=== PATIENT | male | born 1935 | race Caucasian/White ===

== ENCOUNTER 2021-05-02 12:15 | Inpatient (IN) | payer MEDICARE, SELFPAY ==
[2021-05-02] VITALS (44 sets, daily range): BP systolic 80–118; BP diastolic 39–59; PULSE 50–69; RESP 10–32; TEMP 36.6; O2SAT 86–95; BMI 27.9
--- NOTE | 2021-05-02 12:20 | ED_ITS ---
HPI - Chest Pain General: Chief Complaint: Chest Pain Stated Complaint: STEMI Time Seen by Provider: 05/02/21 12:20 History of Present Illness: HPI narrative: Mr. Blunt is an 86-year-old gentleman with history of CAD status post PCI approximately 2 years ago presents the emergency department as a STEMI activation. He reports symptom onset of midsternal chest pressure associated with nausea and diarrhea last night. Symptoms are similar to prior stenting. Initially symptoms were intermittent however now become constant and moderate to severe intensity. He does endorse continued pain with mild improvement of nitro. He was seen at [facility] and EKG at that time found STEMI. He was given aspirin, Plavix, and loaded with heparin and, after discussion with cardiology, transfer to this facility via EMS. History is otherwise limited of acuity of condition and time constraints as patient is being prepped for Audioprosthologist. Review of Systems General: Reports: ROS unobtainable due to medical condition Physical Exam Narrative: EXAM NARRATIVE: GENERAL/CONSTITUTIONAL -mildly ill-appearing. No acute distress. Eyes - PERRL, no conjunctival injection ENMT - Atraumatic external nose and ears. Moist mucous membranes NECK - supple. trachea midline CARDIOVASCULAR - regular rate and rhythm. Peripheral pulses 2+ and equal RESPIRATORY -clear to auscultation bilaterally. No retractions or accessory muscle use. ABDOMEN/GI - Nontender, Nondistended. MSK - Extremities without obvious deformity or tenderness to palpation SKIN - Warm, Dry NEURO - alert and appropriately oriented. Moves all extremities equally. PSYCH - Appropriate mood and affect Course ED course: - Patient was seen and evaluated by me at bedside - Patient placed on cardiac monitors, IV access obtained - Initial evaluation notable for no acute distress, nontoxic appearance. - Cardiology and Audioprosthologist team at bedside. - EKG reviewed and consistent with STEMI. - Patient taken to Audioprosthologist emergently without deterioration in the emergency department. Vital Signs: Vital signs: Vital Signs Temperature 98.1 F 05/03/21 07:09 Pulse Rate 78 05/03/21 08:37 Respiratory Rate 17 05/03/21 07:09 Blood Pressure 98/62 05/03/21 07:09 Pulse Oximetry 92 05/03/21 08:37 MDM - Chest Pain Medical Records: Attestation: I reviewed the patient's medical records. Lab Data: Attestation: I reviewed the patient's lab results. EKG Data^: EKG 1: Attestation: I personally reviewed and interpreted this EKG as follows: EKG interpretation date: 05/02/21 EKG interpretation time: 12:18 Ischemic changes: acute STEMI Interpretation: Twelve-lead EKG shows a regular rhythm at a rate of 55. [place] interval 189. QRS duration 109. QTc 429. Borderline [place]. ST elevation in V1 through V3 with questionable involvement in V4 limited interpretation secondary to wandering baseline in V4. Interpretation: Sinus rhythm. STEMI. Discharge Plan Discharge Admit Provider: Cristiane Rich Clinical Impression: ST elevation myocardial infarction (STEMI) Condition: Stable Coding Level of Care Code ED Electrocardiograph Technician for Geeta Gonzalez
--- NOTE | 2021-05-02 12:22 | XACV_ITS ---
Exam Room: [facility] Ht: 175 cm Wt: 77 kg BSA: 1.95 m2 Gender: Male : 1935 Any Known Allergies: No known allergies Exam Priority: Routine Procedure(s): Procedure Description: Diagnostic procedure Procedure Description: PCI procedure Procedure Description: Left Heart Catheterization Procedure Description: Drug Eluting Coronary Stent Procedure Description: PTCA Diagnostic Findings * Left Main has no disease. * Circumflex has no disease. * Proximal Left Anterior Descending to Distal Left Anterior Descending: total occlusion, LUCIANO: 0 flow. * Proximal Right Coronary Artery: severe 85% stenosis, LUCIANO: 3 flow. * First Obtuse Marginal Branch Segment: moderate 50% stenosis, LUCIANO: 3 flow. * Coronary angiography shows right dominance. PCI Indication: NSTE - ACS Interventional Findings * We after somewhat difficulty were able to cross into LAD multiple balloon angioplasty was performed it appeared to me that LAD is chronically occluded and we were not able to open it. We then decided to treat proximal RCA lesion. Patient had dynamic EKG changes and chest pain therefore we proceeded with balloon angioplasty followed by drug-eluting stent placement. It was postdilated with noncompliant balloon. Good angiographic result with LUCIANO-3 flow was achieved.. * Proximal Right Coronary Artery: 85% stenosis treated with a AB MINI TREK 2.00X15 RX BALLOON, SARY Nettles IVAN 2.75X15 YOAN, and SARY SINGH EUPHORA RX 3.74B26UP BALLOON. 0% residual stenosis, LUCIANO: 3 flow. Conclusions 1. 86-year-old male presented with unstable non-ST elevation MS with continuous chest pain going on for the last night and dynamic EKG changes. He was taken to the [facility] from the ER. He was noted to have occluded mid LAD stents which he thinks has been placed few months ago at an outside hospital. He says he is taking his Plavix. Circumflex has luminal irregularity, left main is patent, RCA has ostial to proximal highly calcified eccentric 85% stenosis. Left circumflex is codominant with luminal irregularity obtuse marginal 1 has 50% stenosis. Patient is not a good candidate for CABG.. 2. There is total occlusion coronary artery disease with two vessel disease. 3. Proximal Right Coronary Artery was treated with a Balloon, Drug Eluting Stent, and Balloon. Recommendations * 1-Return to inpatient for close monitoring and routine cath care2-Risk factor modification for secondary prevention3-Statin and aspirin 81 mg life--long, if tolerated4-Patient was pre-loaded with 600 mg of Plavix, continue Plavix 75mg p.o. daily for at least one year. We will assess at the end of one year again to continue if further or not5-Continue optimal medical management6-Follow up with Dr. Rich in four weeks and your primary care in 10 days. Diagnostic RX Recommendation: PCI w/o planned CABG Pressures Phase:Rest AO : 94 / 69 ( 55 ) @ 12:13:00 PM 107 / 65 ( 83 ) @ 12:22:00 PM Clinical Evaluation EBL: 5mL-10mL Procedural Details Current Diagnosis : STEMI. Pre-Procedure Time Out. Identified patient by full name and date of as verbalized by the patient/guarantor. Does the consent match the physician's order: N/A Emergent; Informed Consent not obtained due to time critical life threat. Accurate & Complete Informed Consent: N/A Emergent; Informed Consent not obtained due to time critical life threat. Inpatient/Outpatient History & Physical on Chart: N/A Emergent; Informed Consent not obtained due to time critical life threat. If H&P is completed, is and addenduem needed: N/A Emergent; Informed Consent not obtained due to time critical life threat; If yes, is the addendum complete: N/A Emergent; Informed Consent not obtained due to time critical life threat. Visualize and Verify Site with Patient/Guarantor: N/A. Relevant Radiology Images available: N/A Emergent; Informed Consent not obtained due to time critical life threat. Pre-op teaching completed and patient verbalized understanding. The risks, benefits, and alternatives of sedation and/or procedure were discussed by physician. The patient agrees to continue. Procedure started. Current diagnosis: STEMI. PERRLA. Strong, equal hand internet project manager bilaterally. Lungs clear x 5 lobes. Oxygen started at 2liters/min via nasal canula. bilateral groins was prepped with chloroprep then draped in the usual sterile fashion. right radial was prepped with chloroprep then draped in the usual sterile fashion. Physician notified. Baseline sample Acquired. HR: 65 BPM. Equipment: 6F - Radial. ACIST Manifold Kit Model BT 2000. Cardiac Cath Pack. Heparinized Saline (2 units/mL), 1000 mL bag. Physician arrived. Physician scrubbed in. Immediate Pre-Procedure Time Out. Correct Patient: Yes; Correct Procedure: Yes; Correct Site: Yes; Correct Patient Position: Yes; Correct Supplies: Yes; Dried Flammable Prep: Yes; Blood Products Available: N/A Emergent; Informed Consent not obtained due to time critical life threat;. AP Pads applied to pt. Lidocaine 1% infiltrated to the right radial. Arterial access obtained. Inventory is [employer] [place] XT .014 190cm Str. Guidewire. 6 georgian XB 3.5 guide catheter was inserted over the wire. Multiple views taken of left coronary artery. Runthrough guidewire was advanced through the guide catheter to lesion in the mid LAD. Inflation number : 11 A AB MINI TREK 2.00X15 RX BALLOON was prepped and advanced across the Mid LAD , then inflated to 20 OUSMANE for 0:25 seconds. Inflation number: 1 The AB MINI TREK 2.00X15 RX BALLOON was reinflated across the Mid LAD, to 18 OUSMANE for 0:20 seconds. Inflation number: 2 The AB MINI TREK 2.00X15 RX BALLOON was reinflated across the Mid LAD, to 16 OUSMANE for 0:12 seconds. Inflation number: 3 The AB MINI TREK 2.00X15 RX BALLOON was reinflated across the Mid LAD, to 16 OUSMANE for 0:13 seconds. Inflation number: 4 The AB MINI TREK 2.00X15 RX BALLOON was reinflated across the Mid LAD, to 16 OUSMANE for 0:13 seconds. Inflation number: 5 The AB MINI TREK 2.00X15 RX BALLOON was reinflated across the Mid LAD, to 16 OUSMANE for 0:18 seconds. Results checked. Balloon out. Guide catheter out. Lidocaine 1% infiltrated to the right groin. Arterial access obtained with micropuncture set. needle out. holding manual pressure. Lidocaine 1% infiltrated to the right groin. Arterial access obtained with micropuncture set. needle out. holding manual pressure. Arterial access obtained with micropuncture set. needle out. holding manual pressure. Arterial access obtained with micropuncture set. 6 georgian XB 3.5 guide catheter was inserted over the wire. ACT drawn. Results 176 seconds. Therapeutic limits - pre-heparin administration 90-150 seconds and monitoring heparin during a vascular procedure >250 seconds. Multiple views taken of left coronary artery. Runthrough guidewire was advanced through the guide catheter to lesion in the mid LAD. Inflation number : 6 A MDT NC EUPHORA RX 2.76H26GN BALLOON was prepped and advanced across the Mid LAD , then inflated to 16 OUSMANE for 0:26 seconds. Inflation number: 7 The MDT NC EUPHORA RX 2.93L29GF BALLOON was reinflated across the Mid LAD, to 16 OUSMANE for 0:25 seconds. Inflation number: 8 The MDT NC EUPHORA RX 2.84B60MG BALLOON was reinflated across the Mid LAD, to 18 OUSMANE for 0:22 seconds. Inflation number: 9 The MDT NC EUPHORA RX 2.28E08XS BALLOON was reinflated across the Mid LAD, to 16 OUSMANE for 0:19 seconds. Results checked. Inflation number: 4 The MDT NC EUPHORA RX 2.98M92YX BALLOON was reinflated across the Mid LAD, to 16 OUSMANE for 0:10 seconds. Results checked. Balloon out. Wire out. Guide catheter out. A 5 georgian JR4 catheter in over wire. Multiple views taken of right coronary artery. catheter out. 6 georgian JR 4 SH guide catheter was inserted over the wire. Runthrough guidewire was advanced through the guide catheter to lesion in the prox RCA. Inflation number: 1 The AB MINI TREK 2.00X15 RX BALLOON was reinflated across the Prox RCA, to 10 OUSMANE for 0:15 seconds. Inflation number: 2 The AB MINI TREK 2.00X15 RX BALLOON was reinflated across the Prox RCA, to 14 OUSMANE for 0:17 seconds. Inflation number: 3 The AB MINI TREK 2.00X15 RX BALLOON was reinflated across the Prox RCA, to 14 OUSMANE for 0:22 seconds. Results checked. Balloon out. stent inserted and removed intact. Inflation Number : 4 A MDT R IVAN 2.75X15 YOAN -Lot Number# was prepped and advanced across the Prox RCA. The stent was deployed at 12 OUSMANE for 0:24 seconds. Results checked. Stent balloon out over wire. Inflation number : 5 A MDT NC EUPHORA RX 3.15R26SJ BALLOON was prepped and advanced across the Prox RCA , then inflated to 8 OUSMANE for 0:28 seconds. Inflation number: 6 The MDT NC EUPHORA RX 3.14L34AD BALLOON was reinflated across the Prox RCA, to 8 OUSMANE for 0:14 seconds. Balloon out. Results checked. Wire out. Guide catheter out. ACT drawn. Results 208 seconds. Therapeutic limits - pre-heparin administration 90-150 seconds and monitoring heparin during a vascular procedure >250 seconds. A TR Band was successful obtaining hemostatsis at the Right Radial artery insertion site. A Suture was successful obtaining hemostatsis at the Right Femoral artery insertion site. TR band placed. Hemostasis obtained. Sheath(s) sutured into position with 2-0 silk and sterile 4x4's and Op-site applied over the site. Arterial sheath flushed and connected to tranducer and pressure bag with heparinized saline. PERRLA. Strong, equal hand internet project manager bilaterally. No VTE prophylaxis required. Fluoro: 30:30. Contrast type used: Omnipaque 300 mgI/mL, 500 mL bottle. hematoma right groin. Dr. Rich at bedside. [id number]. PCI Indication: STEMI. Post-op diagnosis: stemi. Complications: none. Estimated blood loss: 5mL-10mL. Procedure completed. Patient transferred by bed to 1st floor. Medication's Wasted: Other = versed 11 mg. Medication's Wasted: Heparin = 6 units. Medication's Wasted: Nitro = 49.8 mg. Medication's Wasted: Lidocaine 1% = 10 mL. Medication's Wasted: Other = fentanyl 75 mcg. Total IV fluids: 100 mL. Vital chart was stopped. Access Site Site: Right Radial artery Sheath Size: 6 Fr Hemostasis Method: TR Band Hemostasis Success: Successful Site: Right Femoral artery Sheath Size: 6 Fr Hemostasis Method: Suture Hemostasis Success: Successful Procedure Medications Start: 12:34 PM Stop: 12:34 PM Medication: Nitrogylcerin Amount: 200 mcg Route: I.A. Start: 12:35 PM Stop: 12:35 PM Medication: Versed Amount: 1 mg Route: I.V. Start: 12:43 PM Stop: 12:43 PM Medication: Heparin Amount: 6000 units Route: I.V. Start: 12:49 PM Stop: 12:49 PM Medication: Aggrastat 12.5 mg/250 mL Amount: 39 ml Route: I.V. bolus Start: 12:50 PM Stop: 12:50 PM Medication: Aggrastat 12.5 mg/250 mL Amount: 14 ml/hr Route: I.V. drip Start: 12:54 PM Stop: 12:54 PM Medication: Versed Amount: 1 mg Route: I.V. Start: 1:13 PM Stop: 1:13 PM Medication: Heparin Amount: 4000 units Route: I.V. Start: 1:52 PM Stop: 1:52 PM Medication: Fentanyl Amount: 25 mcg I, the attending physician, have reviewed and verified all procedure medications. Yes, all medications given per verbal order Report Signatures Finalized by Cristiane Rich MD on 05/18/2021 04:49 PM
--- NOTE | 2021-05-02 12:26 | PM.HP ---
Providers/Chief Complaint Admitting Physician: Cristiane Rich MD Chief Complaint: STEMI History of Present Illness ORLANDO NOLEN is a 86 year old male past medical history significant for coronary artery disease with history of percutaneous intervention 2 years ago in [place] not on Plavix no record available to me started having chest pain since last night but he did not pay much attention. He started coming this morning from [place] while passing through [place] stop by [place] at [facility]. I was called by ER physician and verbally told over laure phone that patient is having ST elevation CA with anterolateral lead involvement. I advised to give 600 mg of Plavix 325 aspirin and IV heparin before transporting him. I saw him in the ER. Twelve-lead EKG is consistent with anterior wall ST elevation however he has underlying old anterior CA as well. We will take him to the lab tester. Patient has been explained all risk benefit and already for the procedure. He would like to proceed with it. Medications/Allergies Home Medications Medication Instructions Recorded Confirmed Last Taken Type dutasteride 0.5 mg PO DAILY 05/02/21 05/02/21 05/02/21 08:00 History esomeprazole magnesium [Nexium 20 mg PO DAILY 05/02/21 05/02/21 05/02/21 08:00 History 24HR] levothyroxine 125 mcg PO DAILY 05/02/21 05/02/21 05/02/21 08:00 History tamsulosin 0.8 mg PO DAILY 05/02/21 05/02/21 05/01/21 21:00 History Allergies Allergy/AdvReac Type Severity Reaction Status Date / Time No Known Allergies Allergy Verified 05/02/21 15:28 PFSH Acute PFSH: Medical History (Updated 05/03/21 @ 15:06 by Cristiane Rich MD) CHF (congestive heart failure), NYHA class I Hyperlipidemia LDL goal <70 ST elevation myocardial infarction (STEMI) Vitals/I&O/Wt Last Vital Signs Pulse 56 L 05/02/21 12:16 Resp 18 05/02/21 12:16 BP 118/59 05/02/21 12:16 Pulse Ox 95 05/02/21 12:16 Weight last 48 hrs Weight 195 lb Physical Exam Narrative: EXAM NARRATIVE: GENERAL: Patient is alert, awake and oriented x3. NECK: No jugular vein distension. HEENT: No cyanosis. No icterus. No pallor. HEART: Regular S1 and S2. No murmur, rub or gallop. LUNGS: Clear to auscultate bilaterally. ABDOMEN: Soft, nontender and nondistended. Positive bowel sounds. No guarding, rebound or tenderness. CENTRAL NERVOUS SYSTEM: Grossly nonfocal. EXTREMITIES: Lower extremities without edema bilaterally. Data : 05/02/21 18:33 05/02/21 18:33 A&P Assessment and plan (1) ST elevation myocardial infarction (STEMI): Patient will be taken to the [facility] urgently. He has been loaded with Plavix aspirin and heparin. Further plan will advise as per progress of the patient and once anatomy will be revealed. Status: Acute Qualifiers: Involved coronary artery: unspecified coronary artery Qualified Code(s): I21.3 - ST elevation (STEMI) myocardial infarction of unspecified site (2) Hyperlipidemia LDL goal <70: Continue statin. Status: Acute (3) CHF (congestive heart failure), NYHA class I: Well compensated continue medicine Status: Acute Attestations Medical Necessity Statement*: Patient require continuation hospitalization for above defined care. I am expecting patient stay to cross more than 2 midnights. Coding Level of Care Code New Pt Acute Human Resources Benefits Coordinator for Geeta Gonzalez Patient Type New History Detailed Exam Detailed Medical Decision Making Moderate Complexity Diagnoses ST elevation myocardial infarction (STEMI) I21.3 Involved coronary artery: unspecified coronary artery Hyperlipidemia LDL goal <70 E78.5 CHF (congestive heart failure), NYHA class I I50.9
--- NOTE | 2021-05-02 13:39 | ECG_ITS ---
[facility] Test Date: 2021-05-02 Pat Name: Geronimo Blunt Department: Room: 106 Gender: Male Sleeve Separator: : 1935 Requested By: Hamzah Wiseman Order Number: [id number] Stauffer MD: Arnulfo Sanchez M.D. Measurements Intervals [place] Rate: 55 P: -24 CA: 189 QRS: -11 QRSD: 109 T: 105 QT: 446 QTc: 429 Interpretive Statements SINUS BRADYCARDIA WITH OCCASIONAL SUPRAVENTRICULAR PREMATURE COMPLEXES ANTEROSEPTAL MYOCARDIAL INFARCTION , PROBABLY RECENT [40+ ms Q WAVE IN V1-V4] ACUTE AR No previous ECG available for comparison Electronically Signed On 05-02-2021 21:05:25 CDT by Arnulfo Sanchez M.D. [email or web address]
--- NOTE | 2021-05-02 14:45 | PC.NURSE ---
PATIENT BLOOD PRESSURE LOW AT THIS TIME AND HEMATOMA FORMATION NOTED IN RIGHT GROIN DR MEEKS NOTIFIED AND PRESSURE APPLIED CONTINUE TO MONITOR
[2021-05-02 15:18] LABS: Partial Thromboplastin Time > 250.0 SECONDS (23.9-36.7)
[2021-05-02 17:42] LABS: Partial Thromboplastin Time 47.6 SECONDS (23.9-36.7)
--- NOTE | 2021-05-02 18:00 | PC.NURSE ---
DR MEEKS ON UNIT FOR ASSESSMENT OF PATIENT VERBAL INSTRUCTIONS RECEIVED TO START PATIENT ON LEVOFED FOR CAONTNIUED LOW BLOOD PRESSURE AND REMOVE SHEATH WHEN BLOOD PRESSURE STABILIZES OBTAIN CBC, CMP AND TROPONIN
[2021-05-02 18:41] LABS: Basophils % 0.2 %; Eosinophils # 0.1 10^3/uL (0.0-0.8); Eosinophils % 0.3 %; Hematocrit 35.6 % (42.0-52.0); Hemoglobin 11.5 g/dL (11.7-16.6); Lymphocytes # 0.6 10^3/uL (0.8-4.8); Lymphocytes % 3.3 %; Mean Corpuscular HGB Conc 32.3 g/dL (30.0-36.0); Mean Corpuscular Hemoglobin 31.6 pg (28.0-34.0); Mean Corpuscular Volume 97.8 fl (80-94); Mean Platelet Volume 11.7 fL (7.4-10.4); Monocytes # 1.1 10^3/uL (0.2-0.9); Monocytes % 5.9 %; Neutrophils # 16.59 10^3/uL (1.8-7.7); Neutrophils % 89.9 %; Nucleated Red Blood Cells % 0 %; Platelet Count 177 10^3/cmm (130-400); Red Blood Count 3.64 10^6/uL (4.1-5.3); Red Cell Distribution Width 12.7 % (12.1-15.1); White Blood Count 18.5 10^3/uL (4.0-10.0)
[2021-05-02 19:09] LABS: Anion Gap 16.3 (5-19); Blood Urea Nitrogen 21 mg/dL (8-23); Calcium 8.2 mg/dL (8.5-10.5); Carbon Dioxide 23 mmol/L (22-29); Chloride 102 mmol/L (98-107); Glucose 169 mg/dL (65-115); Osmolality Calculated 291 mOsm/kg (285-295); Potassium 4.3 mmol/L (3.5-5.1); Sodium 137 mmol/L (136-145)
[2021-05-02 19:11] LABS: Troponin T (5th) Once 3048 ng/L (0-15)
--- NOTE | 2021-05-02 21:38 | PC.NURSE ---
Began removing air from TR band at 1929. TR band removed at 2129. No bleeding or hematoma noted. Radial pulse present. Skin color and temp WNL. Patient educated on care and activity restrictions and verbalized understanding. Sheath removed from right groin at 2025. Manual pressure held for 20 minutes. Hematoma present prior to sheath removed. Hematoma appears to be softening and not getting any larger. It will be monitored frequently. Will tolerate Levophed drip off as patient will tolerate per order. Vital signs are currently stable.
[2021-05-03] VITALS (15 sets, daily range): BP systolic 90–107; BP diastolic 44–62; PULSE 50–82; RESP 17–28; TEMP 36.6–36.7; O2SAT 91–94
--- NOTE | 2021-05-03 03:09 | PC.NURSE ---
Patient ambulated to bathroom with assistance from nurse. Patient tolerated well. No changes to right groin or right wrist sites.
[2021-05-03] MEDS: clopidogrel 75 mg Tablet PO (10:04)
[2021-05-03] MEDS: tamsulosin 0.4 mg Capsule 0.8 MG PO (10:04)
[2021-05-03] MEDS: levothyroxine 125 mcg Tablet PO (10:04)
--- NOTE | 2021-05-03 15:07 | P.PN_ITS ---
Subjective Subjective: Interval history: S/p coronary angiogram noted to have chronically occluded LAD and diagonal branch with prior stents. We tried to probe cross the lesion and perform balloon angioplasty but were not able to open it up since due to chronic occlusion. Patient was also noted to have significantly narrow high- grade stenotic proximal RCA which may be the culprit vessel in his case as it may will be supplying LAD through collaterals. It was treated with balloon angioplasty followed by drug-eluting stent. Due to extreme tortuosity of the subclavian vessels we have to switch to the groin. Vitals/I&O/Wt Last Vital Signs Temp 98.1 F 05/03/21 07:09 Pulse 78 05/03/21 08:37 Resp 17 05/03/21 07:09 BP 98/62 05/03/21 07:09 Pulse Ox 92 05/03/21 08:37 05/03/21 05/03/21 05/03/21 06:59 14:59 22:59 Intake Total 200 / 380.005 0 / 0 Balance 200 / -19.995 0 / 0 Weight last 48 hrs Weight 195 lb Weight 195 lb Physical Exam Narrative: EXAM NARRATIVE: GENERAL: Patient is alert, awake and oriented x3. NECK: No jugular vein distension. HEENT: No cyanosis. No icterus. No pallor. HEART: Regular S1 and S2. No murmur, rub or gallop. LUNGS: Clear to auscultate bilaterally. ABDOMEN: Soft, nontender and nondistended. Positive bowel sounds. No guarding, rebound or tenderness. CENTRAL NERVOUS SYSTEM: Grossly nonfocal. EXTREMITIES: Lower extremities without edema bilaterally. Data : 05/02/21 18:33 05/02/21 18:33 A&P Assessment and plan (1) ST elevation myocardial infarction (STEMI): S/p coronary angiogram noted to have chronically occluded LAD and diagonal branch with prior stents. We tried to probe cross the lesion and perform balloon angioplasty but were not able to open it up since due to chronic occlusion. Patient was also noted to have significantly narrow high-grade stenotic proximal RCA which may be the culprit vessel in his case as it may will be supplying LAD through collaterals. It was treated with balloon angioplasty followed by drug-eluting stent. Due to extreme tortuosity of the subclavian vessels we have to switch to the groin. We will slowly optimize medicine since blood pressure is on the lower side. Last night patient was started on Levophed. Patient has mild hematoma in the right groin but overall he remained stable. Continue aspirin statin will add beta-lyndon. We will ask for echocardiogram. Continue Plavix. Will keep in iron Status: Acute Qualifiers: Involved coronary artery: unspecified coronary artery Qualified Code(s): I21.3 - ST elevation (STEMI) myocardial infarction of unspecified site (2) Hyperlipidemia LDL goal <70: Continue statin. Status: Acute (3) CHF (congestive heart failure), NYHA class I: Well compensated continue medicine Status: Acute Attestations Medical Necessity Statement*: Patient require continuation hospitalization for above defined care. Coding Level of Care Code Established Pt Acute Rfid Systems Architect for Geeta Gonzalez Patient Type Established History Detailed Exam Detailed Medical Decision Making Moderate Complexity Diagnoses ST elevation myocardial infarction (STEMI) I21.3 Involved coronary artery: unspecified coronary artery Hyperlipidemia LDL goal <70 E78.5 CHF (congestive heart failure), NYHA class I I50.9
--- NOTE | 2021-05-03 19:18 | PC.NURSE ---
Shift Note Frequent safety and comfort rounds continue. Orders and/or nursing care completed as indicated. Patient monitored for response to intervention and treatment(s). Education provided includes new discharge plan. Patient and/or customer relations representative verbalized understanding. Will continue to monitor.
[2021-05-04] VITALS (9 sets, daily range): BP systolic 92–131; BP diastolic 46–58; PULSE 61–89; RESP 20–25; TEMP 36.4–36.8; O2SAT 90–95
[2021-05-04 08:21] LABS: Basophils % 0.2 %; Hematocrit 30.4 % (42.0-52.0); Hemoglobin 9.7 g/dL (11.7-16.6); Lymphocytes # 0.9 10^3/uL (0.8-4.8); Lymphocytes % 5.9 %; Mean Corpuscular HGB Conc 31.9 g/dL (30.0-36.0); Mean Corpuscular Hemoglobin 31.7 pg (28.0-34.0); Mean Corpuscular Volume 99.3 fl (80-94); Monocytes % 6.6 %; Neutrophils # 13.23 10^3/uL (1.8-7.7); Neutrophils % 86.7 %; Nucleated Red Blood Cells % 0 %; Platelet Count 147 10^3/cmm (130-400); Red Blood Count 3.06 10^6/uL (4.1-5.3); Red Cell Distribution Width 12.8 % (12.1-15.1); White Blood Count 15.3 10^3/uL (4.0-10.0)
[2021-05-04 08:41] LABS: Anion Gap 14.2 (5-19); Blood Urea Nitrogen 26 mg/dL (8-23); Calcium 8.8 mg/dL (8.5-10.5); Carbon Dioxide 25 mmol/L (22-29); Chloride 102 mmol/L (98-107); Glucose 148 mg/dL (65-115); Osmolality Calculated 292 mOsm/kg (285-295); Potassium 4.2 mmol/L (3.5-5.1); Sodium 137 mmol/L (136-145)
[2021-05-04] MEDS: tamsulosin 0.4 mg Capsule 0.8 MG PO (08:55)
[2021-05-04] MEDS: pantoprazole DR 40 mg Tablet PO (08:55)
[2021-05-04] MEDS: clopidogrel 75 mg Tablet PO (08:56)
[2021-05-04] MEDS: levothyroxine 125 mcg Tablet PO (08:56)
[2021-05-04 09:37] LABS: Troponin T (5th) Once 4745 ng/L (0-15)
--- NOTE | 2021-05-04 14:41 | PM.PN ---
Subjective Subjective: Interval history: Denies any chest pain however blood pressure is on the lower side. He is not dizzy creatinine appear to be normal Vitals/I&O/Wt Last Vital Signs Temp 98.3 F 05/04/21 11:48 Pulse 72 05/04/21 11:48 Resp 25 H 05/04/21 11:48 BP 92/54 05/04/21 11:48 Pulse Ox 92 05/04/21 11:48 05/03/21 05/04/21 05/04/21 22:59 06:59 14:59 Intake Total 260 / 860 300 / 1160 480 / 480 Output Total 200 / 500 Balance 60 / 360 300 / 660 480 / 480 Physical Exam Narrative: EXAM NARRATIVE: GENERAL: Patient is alert, awake and oriented x3. NECK: No jugular vein distension. HEENT: No cyanosis. No icterus. No pallor. HEART: Regular S1 and S2. No murmur, rub or gallop. LUNGS: Clear to auscultate bilaterally. ABDOMEN: Soft, nontender and nondistended. Positive bowel sounds. No guarding, rebound or tenderness. CENTRAL NERVOUS SYSTEM: Grossly nonfocal. EXTREMITIES: Lower extremities without edema bilaterally. Data : 05/04/21 07:44 05/04/21 07:44 A&P Assessment and plan (1) ST elevation myocardial infarction (STEMI): S/p coronary angiogram noted to have chronically occluded LAD and diagonal branch with prior stents. We tried to probe cross the lesion and perform balloon angioplasty but were not able to open it up since due to chronic occlusion. Patient was also noted to have significantly narrow high-grade stenotic proximal RCA which may be the culprit vessel in his case as it may will be supplying LAD through collaterals. It was treated with balloon angioplasty followed by drug-eluting stent. Due to extreme tortuosity of the subclavian vessels we have to switch to the groin. We will slowly optimize medicine since blood pressure is on the lower side. Last night patient was started on Levophed. Patient has mild hematoma in the right groin but overall he remained stable. Continue aspirin statin will add beta-lyndon. We will ask for echocardiogram. Continue Plavix. Appear to be stable from a coronary disease perspective I will add metoprolol however blood pressure is on the lower side we will hold onto adding SRAVAN inhibitor. LV function will be assessed through echo. Will have MA walk around to see whether he will be able to move out of the hospital. Patient lives in [place] and he is driving by himself. We will also need to check whether he can drive by himself or not Status: Acute Qualifiers: Involved coronary artery: unspecified coronary artery Qualified Code(s): I21.3 - ST elevation (STEMI) myocardial infarction of unspecified site (2) Hyperlipidemia LDL goal <70: Continue statin. Status: Acute (3) CHF (congestive heart failure), NYHA class I: Well compensated continue medicine Status: Acute Attestations Medical Necessity Statement*: Patient require continuation hospitalization for above defined care. Coding Level of Care Code Acute Party Plan Sales Unit Advisor for Geeta Gonzalez Diagnoses ST elevation myocardial infarction (STEMI) I21.3 Involved coronary artery: unspecified coronary artery Hyperlipidemia LDL goal <70 E78.5 CHF (congestive heart failure), NYHA class I I50.9
--- NOTE | 2021-05-04 18:24 | PC.NURSE ---
metoprolol: 12.5 mg metoprolol succinate ordered by dr maldonado.pt's bp has been marginal...and currently bp 98/48 and 99/50.dr maldonado notified.he ordered to give metoprolol if sbp > 105 this evening.
--- NOTE | 2021-05-04 18:28 | PC.NURSE ---
end of shift note: pt was kept for observation of bp s/p stemi.bp running on low side.held first dose of metoprolol today due to bp.
[2021-05-04] MEDS: metoprolol succinate ER (24 HR) 25 mg Tablet 12.5 MG PO (23:22)
[2021-05-05] VITALS: BP 123/64; PULSE 61; RESP 18; O2SAT 96
[2021-05-05 04:00] VITALS: PULSE 60; RESP 18
[2021-05-05 06:00] VITALS: PULSE 63
[2021-05-05] MEDS: metoprolol succinate ER (24 HR) 25 mg Tablet 12.5 MG PO (07:58)
[2021-05-05] MEDS: pantoprazole DR 40 mg Tablet PO (07:58)
[2021-05-05] MEDS: tamsulosin 0.4 mg Capsule 0.8 MG PO (07:58)
[2021-05-05] MEDS: levothyroxine 125 mcg Tablet PO (07:58)
[2021-05-05] MEDS: clopidogrel 75 mg Tablet PO (07:59)
[2021-05-05 08:34] VITALS: BP 125/59; PULSE 67; RESP 18; TEMP 37.1; O2SAT 96
--- NOTE | 2021-05-05 08:42 | USCV_ITS ---
Geronimo Blunt Age: 86 Gender: M : 1935 Exam Date: 05/05/2021 08:56 Ordering Phys: Cristiane Rich MD ([email or web address]) Technologist: Fuad Martinez Exam Location: [facility] [place] Indication: STEMI BP: 125 / 59 HR: 65 Rhythm: Sinus Technical Quality: Adequate MEASUREMENTS (Male / Female) Normal Values 2D ECHO LV Diastolic Diameter PLAX 4.6 cm 4.2 - 5.9 / 3.9 - 5.3 cm LV Systolic Diameter PLAX 4.4 cm IVS Diastolic Thickness 1.2 cm 0.6 - 1.0 / 0.6 - 0.9 cm IVS Systolic Thickness 1.3 cm LVPW Diastolic Thickness 1.1 cm 0.6 - 1.0 / 0.6 - 0.9 cm LVPW Systolic Thickness 1.4 cm LVOT Diameter 2.1 cm LV Ejection Fraction 2D Teich 3.5 % LV Ejection Fraction MOD 2C 29.6 % LV Ejection Fraction 2C AL 28.6 % LA Diameter 3.6 cm LA Width 5.0 cm LA Height 6.1 cm RA Width 3.6 cm RA Height 4.5 cm DOPPLER AV Peak Velocity 201.2 cm/s LVOT Peak Velocity 92.0 cm/s AV Area Cont Eq vti 1.4 cm squared AV Area Cont Eq pk 1.6 cm squared MV Area PHT 5.0 cm squared Mitral E to A Ratio 0.8 MV E' Velocity 48.5 cm/s Mitral E to MV E' Ratio 16.5 Mitral E to LV E' Lateral Ratio 15.6 Mitral E to LV E' Septal Ratio 17.4 TR Peak Velocity 227.7 cm/s TR Peak Gradient 20.7 mmHg TV Peak E Velocity 104.0 cm/s Right Atrial Pressure 3.0 mmHg Pulmonary Artery Systolic Pressu 23.7 mmHg FINDINGS Left Ventricle Moderately increased left ventricular cavity size. Severely decreased left ventricular systolic function. Left ventricular ejection fraction is estimated at 35 %. There appeared to be mid to distal anterior septal and apical wall dyskinesis with thinning suggestive of old myocardial infarction and LAD territory.Grade I/IV diastolic dysfunction (abnormal relaxation filling pattern), normal to mildly elevated filling pressures. Right Ventricle The right ventricle is normal in size and function. Right Atrium The right atrium is normal in size. Left Atrium The left atrium is normal in size. Mitral Valve Moderately thickened mitral valve. No mitral valve stenosis. Mild mitral valve regurgitation. Aortic Valve Aortic valve not well visualized. Severe aortic valve calcification. Moderate aortic valve stenosis, mean gradient 8 mmHg, VERONICA 1.4 cm squared.trace aortic valve regurgitation. Tricuspid Valve Structurally normal tricuspid valve without significant stenosis or regurgitation. Pulmonary artery systolic pressure is normal. Pulmonic Valve Structurally normal pulmonic valve without significant stenosis. There is no pulmonic regurgitation. Pericardium Normal pericardium without effusion. Aorta Normal ascending aorta dimension. CONCLUSIONS 1-Moderately increased left ventricular cavity size. Severely decreased left ventricular systolic function. Left ventricular ejection fraction is estimated at 35 %. There appeared to be mid to distal anterior septal and apical wall dyskinesis with thinning suggestive of old myocardial infarction and LAD territory.Grade I/IV diastolic dysfunction (abnormal relaxation filling pattern), normal to mildly elevated filling pressures. 2-Aortic valve not well visualized. Severe aortic valve calcification. Moderate aortic valve stenosis, mean gradient 8 mmHg, VEROINCA 1.4 cm squared.trace aortic valve regurgitation. 3-Moderately thickened mitral valve. No mitral valve stenosis. Mild mitral valve regurgitation. 4-There is no pericardial effusion. 5-Pulmonary artery systolic pressure is within normal limits. 6-Right atrial pressure is around 5 mm of mercury. 7-There are no prior echocardiogram studies to compare. Cristiane Rich MD (Electronically Signed) Final Date: 18 May 2021 18:25 S
--- NOTE | 2021-05-05 08:42 | P.DS_ITS ---
Discharge Providers Date of Admission: 05/02/21 14:06 Date of Discharge: May 05, 2021 Attending Provider at Admission: Cristiane Rich MD Attending Provider at Discharge: Cristiane Rich MD Diagnoses at Discharge Discharge Diagnosis (1) ST elevation myocardial infarction (STEMI): Status: Resolved Qualifiers: Involved coronary artery: unspecified coronary artery Qualified Code(s): I21.3 - ST elevation (STEMI) myocardial infarction of unspecified site (2) Hyperlipidemia LDL goal <70: Status: Acute (3) CHF (congestive heart failure), NYHA class I: Status: Acute Reason for Visit Reason for Visit: STEMI Hospital Course Hospital Course 86-year-old male past medical history significant for hypertension hyperlipide lisa multiple history of stents presented with acute coronary syndrome he was taken to the [facility] he was noted to have chronically occluded mid to distal LAD which was recently stented it was not the culprit vessel culprit vessel was proximal highly calcified RCA which was 90% stenotic it was treated with drug- eluting stent and balloon angioplasty. Excellent angiographic result with LUCIANO- 3 flow was achieved. Over next 2 to 3 days patient medicine was titrated. Patient was advised to not to drive himself. He has told me that his daughter is going to come and pick him up. He refused LifeVest. His ejection fraction is chronically depressed and severely depressed on recent echocardiogram. Today he is walking around without any difficulty. His blood pressure is borderline low. He denies any dizziness he denies chest pain shortness of breath PND orthopnea. He is being discharged. Patient has been advised to follow up with us if he is around in 6 to 7 days or call us if he has any problem. We will discharge him with at least 1 month of medicine. Physical Exam Narrative: EXAM NARRATIVE: GENERAL: Patient is alert, awake and oriented x3. NECK: No jugular vein distension. HEENT: No cyanosis. No icterus. No pallor. HEART: Regular S1 and S2. No murmur, rub or gallop. LUNGS: Clear to auscultate bilaterally. ABDOMEN: Soft, nontender and nondistended. Positive bowel sounds. No guarding, rebound or tenderness. CENTRAL NERVOUS SYSTEM: Grossly nonfocal. EXTREMITIES: Lower extremities without edema bilaterally. Discharge Data Data Completed and Pending: Pending at discharge Category Date Time Status [employer] [employer]DER request for service Stat Exams 05/02/21 12:22 Taken CV. echo complete * [id number] Routine Ultrasound 05/05/21 08:42 Ordered Labs from last 24 hours 05/04/21 05/04/21 07:44 07:44 BUN 26 H Glucose 148 H Troponin T Gen 5 n g/L 4745 H* Vitals: Last Vital Signs Temp 98.7 F 05/05/21 08:34 Pulse 67 05/05/21 08:34 Resp 18 05/05/21 08:34 BP 125/59 05/05/21 08:34 Pulse Ox 96 05/05/21 08:34 Discharge Plan Discharge Patient Disposition: Home Condition: Stable Prescriptions: New clopidogrel 75 mg Tablet 75 mg PO DAILY Qty: 90 RF: 3 pantoprazole 40 mg Tablet,Delayed Release (Dr/Ec) 40 mg PO DAILY Qty: 30 RF: 2 metoprolol succinate 25 mg Tablet Extended Release 24 Hr 12.5 mg PO DAILY Qty: 30 RF: 3 Adult Aspirin Regimen 81 mg tablet,delayed release (DR/EC) 81 mg PO DAILY Qty: 90 RF: 3 Continued dutasteride 0.5 mg capsule 0.5 mg PO DAILY RF: 0 levothyroxine 125 mcg tablet 125 mcg PO DAILY RF: 0 tamsulosin 0.4 mg capsule 0.8 mg PO DAILY RF: 0 Discontinued esomeprazole magnesium [Nexium 24HR] 20 mg Capsule,Delayed Release(Dr/Ec) 20 mg PO DAILY RF: 0 Discharge Orders: Discharge Order (Routine); Ordered 05/05/21 Ordered By: Cristiane Rich Referrals: Dr. Sterling [Other] - 06/04/21 2:00 pm [facility] [Other] - 05/13/21 10:00 am (You will see TYLER Galindo at this appointment.) Discharge Diet: Cardiac Discharge Activity: Limit activity as instructed Patient Instructions: Metoprolol (By mouth), Aspirin (By mouth), Clopidogrel (By mouth), Pantoprazole (By mouth), Coronary Angioplasty (DC), Opioid Safety, Post Angiogram Home Care Instructions Activity Restrictions/Additional Instructions: Patient has been instructed not to drive walk more than few steps upstairs for at least 1 week. He has to be reassessed by the primary care physician before resuming the driving. He has not been started on SRAVAN inhibitor due to borderline low blood pressure. He has been advised to continue clopidogrel and aspirin without any interruption for at least 1 year. After that he will be assessed for it. Patient would like to be released. He has been advised to call the family or anyone that can take him back to home. We have offered social scientist to involved with it. Patient has been advised to see us back in 7 days if he is around in the town. He has been advised to see his primary care physician as soon as you get back to home within the next 7 to 10 days. Patient has been advised he can always call us from his home if any problem or information needed. 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 Discharge Attestations Time Spent in Discharge Care*: less than 30 min Specific Discharge Activities: educating patient Quality Metrics Clinical Quality Measures During this hospital stay, did patient experience: AMI Clinical Trial Participant: No Contraindication to aspirin (AMI): Aspirin given Contraindication to statin: Statin prescribed Coding Level of Care Code Established Pt Acute Chg FW DC note Patient Type Established History Detailed Exam Detailed Medical Decision Making Moderate Complexity Diagnoses ST elevation myocardial infarction (STEMI) I21.3 Involved coronary artery: unspecified coronary artery Hyperlipidemia LDL goal <70 E78.5 CHF (congestive heart failure), NYHA class I I50.9
--- NOTE | 2021-05-05 09:11 | PC.NURSE ---
Fuad from Ultrasound at the beside
--- NOTE | 2021-05-05 09:23 | PC.SOCIAL ---
IMM update IMM updated with patient and . Verbalized an understanding. Copy Pg 2 provided. Initialled, dated, timed, and placed in chart.
--- NOTE | 2021-05-05 10:19 | PC.NURSE ---
Discharge education has been provided to patient and spouse. Patient has been advised not to operate motor vehicle until he is cleared by primary care physician, or about one week. Patient is not very susceptive to instructions regarding not driving. However, patient understands risks. Patient does not have any further questions. Awaiting transport for discharge.
[2021-05-05 11:29] VITALS: BP 125/59; PULSE 67; RESP 18; TEMP 37.1; O2SAT 96
--- NOTE | 2021-05-06 11:56 | PC.SOCIAL ---
discharge follow up call made, spoke with patients . she reports patient is resting at this time. patient is feeling much better. reports patient has no chest pain, sob, incision from cardiac cath is free from redness or swelling. patients new medications were delivered to bedside prior to discharge. patient is taking as prescribed. follow up appointments made for patient, dates and times given to . 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 denies questions or concerns.
== END 2021-05-05 10:45 | disposition home or self-care (01) | DRG 247 ==
LOC: ER 12:26 → CCL 12:58 → CSU 14:11
PROVIDERS: Admitting Provider Internal Medicine Cardiovascular Disease; Emergency Provider Emergency Medicine; Visit Provider Internal Medicine Cardiovascular Disease
PROC: 027034Z Dilation of Coronary Artery, One Artery with Drug-eluting Intraluminal Device, Percutaneous Approach (ICD-10-PCS; principal; 2021-05-02 12:15)
PROC: 027034Z Dilation of Coronary Artery, One Artery with Drug-eluting Intraluminal Device, Percutaneous Approach (ICD-10-PCS; 2021-05-02 12:15)
DX: I21.09 ST elevation (STEMI) myocardial infarction involving other coronary artery of anterior wall (principal); I50.22 Chronic systolic (congestive) heart failure; I25.10 Atherosclerotic heart disease of native coronary artery without angina pectoris; I25.2 Old myocardial infarction; E78.5 Hyperlipidemia, unspecified; I11.0 Hypertensive heart disease with heart failure; Z95.5 Presence of coronary angioplasty implant and graft
CPT/HCPCS: 36415; 80048; 84484; 85025; 85347; 85730; 92920; 93005; 93306; 93454; 99285; C1725; C1769; C1874; C1887; C1894; C9600; J1644; J2250; J3010; J3246; J3490; J7030; Q9967